=== PATIENT | male | born 1935 | race Caucasian/White ===

== ENCOUNTER 2018-06-05 09:39 | Inpatient (IN) | payer MEDICARE, OTHER ==
[~2018-06-05] VITALS: Ht 660.3 cm; Wt 95.5 kg
[2018-06-05 10:09] LABS: INR 1.1 INR; PARTIAL THROMBOPLASTIN TIME 28 SECONDS (22-32); PROTHROMBIN TIME 10.9 SECONDS (9.0-12.0)
[2018-06-05 10:21] LABS: ALANINE AMINOTRANSFERASE 27 U/L (12-78); ALBUMIN 3.7 G/DL (3.4-5.0); ALBUMIN/GLOBULIN RATIO 1.1 (1.1-1.5); ALKALINE PHOSPHATASE 123 IU/L (46-116); ANION GAP 13 (8-16); ASPARTATE AMINO TRANSFERASE 23 U/L (10-37); BILIRUBIN,TOTAL 0.4 MG/DL (0.1-1.0); BLOOD UREA NITROGEN 26 MG/DL (7-18); BUN/CREATININE RATIO 21.5 (5.4-32.0); CALCIUM 8.3 MG/DL (8.5-10.1); CHLORIDE 106 MMOL/L (99-107); CREATININE 1.21 MG/DL (0.60-1.10); GLUCOSE 96 MG/DL (70-104); POTASSIUM 4.4 MMOL/L (3.5-5.1); SODIUM 142 MMOL/L (135-145); TOTAL CARBON DIOXIDE 23.2 MMOL/L (24-32); TOTAL PROTEIN 7.1 G/DL (6.4-8.2); TROPONIN I < 0.04 NG/ML (0.0-0.05); eGFR 57 ML/MIN
[2018-06-05 10:35] LABS: WHITE BLOOD COUNT 9.2 X10'3 (4.5-11.0)
[2018-06-05 10:36] LABS: BASOPHILS # (AUTO) 0.2 X10'3 (0-0.2); EOSINOPHILS # (AUTO) 0.4 X10'3 (0-0.9); HEMATOCRIT 48.2 % (42.0-52.0); HEMOGLOBIN 16.3 g/dl (14.0-17.9); LYMPHOCYTES # (AUTO) 2.2 X10'3 (1.1-4.8); LYMPHOCYTES % (AUTO) 23.9 % (21-51); MEAN CORPUSCULAR HEMOGLOBIN 30.5 PG (27.0-31.0); MEAN CORPUSCULAR HGB CONC 33.9 % (33.0-36.5); MEAN CORPUSCULAR VOLUME 90.1 FL (78-98); MEAN PLATELET VOLUME 8.1 FL (7.4-10.4); MONOCYTES # (AUTO) 0.8 X10'3 (0-0.9); MONOCYTES % (AUTO) 8.2 % (2-12); NEUTROPHILS # (AUTO) 5.6 X10'3 (1.8-7.7); NEUTROPHILS % (AUTO) 61.9 % (42-75); PLATELET COUNT 211 X10'3 (140-440); RED BLOOD COUNT 5.35 X10'6 (4.70-6.10); RED CELL DISTRIBUTION WIDTH 13.4 % (11.5-14.5)
[2018-06-05] MEDS ORDERED: iohexol 350MG/ML 100ml bottle IV ONE (11:40)
[2018-06-05] MEDS ORDERED: magnesium 2GM in 50ml NS 50 ML IV PRN (11:45)
[2018-06-05] MEDS ORDERED: mag hydrox/Alum hydrox/simeth 30ml oral suspension PO PRN (11:45)
[2018-06-05] MEDS ORDERED: magnesium hydroxide 30ml (MOM) UD suspension PO PRN (11:45)
[2018-06-05] MEDS ORDERED: bisacodyl 10mg suppository rectal RC PRN (11:45)
[2018-06-05] MEDS ORDERED: magnesium 4gm in 100ml NS 100 ML IV PRN (11:45)
[2018-06-05] MEDS ORDERED: magnesium Cl slow-release 64mg tablet PO PRN (11:45)
[2018-06-05] MEDS ORDERED: ondansetron/PF 4mg/2ml inj IV PRN (11:45)
[2018-06-05] MEDS ORDERED: acetaminophen 325mg tablet PO PRN (11:45)
[2018-06-05] MEDS ORDERED: potassium Cl 40MEQ/NS 500ml 500 ML IV PRN ×2 (11:45)
[2018-06-05] MEDS ORDERED: potassium Cl 20 mEq SR tablet PO PRN ×2 (11:45)
[2018-06-05] MEDS: aspirin 325mg tablet, delayed-release (Ecotrin) PO SCH (11:50)
[2018-06-05] MEDS ORDERED: aspirin 325mg tablet, delayed-release (Ecotrin) PO ONE (13:30)
[2018-06-05] MEDS: sodium chloride 0.45% 1,000 ML IV SCH (13:35)
[2018-06-05] MEDS: clopidogrel 75mg tablet PO SCH (16:29)
[2018-06-05] MEDS ORDERED: AMIO200T10 PO (17:24)
[2018-06-05] MEDS ORDERED: LEVO50TA8 PO (17:24)
[2018-06-05] MEDS ORDERED: OMEP40CA37 PO (17:24)
[2018-06-05] MEDS ORDERED: METO25TA6 PO (17:24)
[2018-06-05 18:00] VITALS: BP 176/76
[2018-06-05 19:01] LABS: CHOL/HDL RATIO 3.2 (0.00-4.99); CHOLESTEROL 149 MG/DL (0-200); HDL CHOLESTEROL 46 MG/DL (35-60); LDL CHOLESTEROL 93 MG/DL (50-100); TRIGLYCERIDES 140 MG/DL (20-135)
[2018-06-05] MEDS: atorvastatin 20mg tablet PO SCH (19:44)
[2018-06-05] MEDS: heparin, porcine 5000 units/ml vial SQ SCH (19:47)
[2018-06-05] MEDS ORDERED: atorvastatin 10mg tablet PO SCH (20:00)
[2018-06-05 22:00] VITALS: BP 158/77
[2018-06-06 02:00] VITALS: BP 166/76
[2018-06-06] MEDS: sodium chloride 0.45% 1,000 ML IV SCH ×2 (05:11→17:06)
[2018-06-06 06:00] VITALS: BP 156/70
[2018-06-06 06:47] LABS: ALANINE AMINOTRANSFERASE 21 U/L (12-78); ALBUMIN 3.2 G/DL (3.4-5.0); ALBUMIN/GLOBULIN RATIO 1.1 (1.1-1.5); ALKALINE PHOSPHATASE 94 IU/L (46-116); ANION GAP 10 (8-16); ASPARTATE AMINO TRANSFERASE 17 U/L (10-37); BILIRUBIN,TOTAL 0.6 MG/DL (0.1-1.0); BLOOD UREA NITROGEN 19 MG/DL (7-18); BUN/CREATININE RATIO 16.4 (5.4-32.0); CALCIUM 8.2 MG/DL (8.5-10.1); CHLORIDE 108 MMOL/L (99-107); CHOL/HDL RATIO 3.1 (0.00-4.99); CHOLESTEROL 131 MG/DL (0-200); CREATININE 1.16 MG/DL (0.60-1.10); GLUCOSE 88 MG/DL (70-104); HDL CHOLESTEROL 42 MG/DL (35-60); LDL CHOLESTEROL 82 MG/DL (50-100); MAGNESIUM 2.1 MG/DL (1.5-2.4); SODIUM 142 MMOL/L (135-145); TOTAL CARBON DIOXIDE 24.1 MMOL/L (24-32); TOTAL PROTEIN 6.2 G/DL (6.4-8.2); TRIGLYCERIDES 75 MG/DL (20-135); eGFR 60 ML/MIN
[2018-06-06] MEDS: K and/or MAG REPLACEMENT MC SCH (08:00)
[2018-06-06] MEDS: aspirin 325mg tablet, delayed-release (Ecotrin) PO SCH (08:05)
[2018-06-06] MEDS: clopidogrel 75mg tablet PO SCH (08:05)
[2018-06-06] MEDS: atorvastatin 20mg tablet PO SCH (08:05)
[2018-06-06] MEDS: heparin, porcine 5000 units/ml vial SQ SCH (08:07)
[2018-06-06 10:00] VITALS: BP 158/64
[2018-06-06 14:00] VITALS: BP 160/75
[2018-06-06] MEDS: amLODIPine 5mg tablet PO SCH (17:06)
[2018-06-06] MEDS: LORazepam 0.5 MG tablet PO PRN ×2 (17:48→22:03)
[2018-06-06 18:00] VITALS: BP 147/56
[2018-06-06 22:00] VITALS: BP 163/88
[2018-06-07 02:00] VITALS: BP 107/56
[2018-06-07 06:00] VITALS: BP 145/77
[2018-06-07 06:04] LABS: ALANINE AMINOTRANSFERASE 22 U/L (12-78); ALBUMIN 3.4 G/DL (3.4-5.0); ALBUMIN/GLOBULIN RATIO 1.1 (1.1-1.5); ALKALINE PHOSPHATASE 101 IU/L (46-116); ANION GAP 8 (8-16); ASPARTATE AMINO TRANSFERASE 23 U/L (10-37); BILIRUBIN,TOTAL 0.6 MG/DL (0.1-1.0); BLOOD UREA NITROGEN 16 MG/DL (7-18); BUN/CREATININE RATIO 14.3 (5.4-32.0); CALCIUM 8.6 MG/DL (8.5-10.1); CHLORIDE 107 MMOL/L (99-107); CREATININE 1.12 MG/DL (0.60-1.10); GLUCOSE 82 MG/DL (70-104); POTASSIUM 3.5 MMOL/L (3.5-5.1); SODIUM 142 MMOL/L (135-145); TOTAL CARBON DIOXIDE 26.6 MMOL/L (24-32); TOTAL PROTEIN 6.6 G/DL (6.4-8.2); eGFR 63 ML/MIN
[2018-06-07] MEDS: sodium chloride 0.45% 1,000 ML IV SCH (06:35)
[2018-06-07] MEDS: K and/or MAG REPLACEMENT MC SCH (08:00)
[2018-06-07] MEDS ORDERED: aspirin 81mg tablet.DR PO SCH (08:00)
[2018-06-07] MEDS ORDERED: pantoprazole 40mg Tablet.DR PO SCH (08:00)
[2018-06-07] MEDS ORDERED: levoTHYROXINE 25mcg tablet PO SCH (08:00)
[2018-06-07] MEDS: clopidogrel 75mg tablet PO SCH (08:39)
[2018-06-07] MEDS: atorvastatin 20mg tablet PO SCH (08:40)
[2018-06-07] MEDS: amLODIPine 5mg tablet PO SCH (08:42)
[2018-06-07 10:00] VITALS: BP 158/70
[2018-06-07] MEDS ORDERED: ASPI-1071 PO (11:41)
[2018-06-07] MEDS ORDERED: NOR5T PO (11:41)
[2018-06-07] MEDS ORDERED: DABI75CA3 PO (11:41)
[2018-06-07] MEDS ORDERED: CLOP75TA35 PO (11:41)
[2018-06-07] MEDS ORDERED: ATOR20TA66 PO (11:41)
== END 2018-06-07 14:50 | disposition home or self-care (01) | DRG 66 ==
LOC: EDBD 09:40 → ER 09:40 → ED HOLD 11:41 → ORTHO 4S 15:37
PROVIDERS: ADMIT Internal Medicine; ATTEND Internal Medicine
PROC: B3251ZZ Computerized Tomography (CT Scan) of Bilateral Common Carotid Arteries using Low Osmolar Contrast (ICD-10-PCS; principal; 2018-06-05)
PROC: B32G1ZZ Computerized Tomography (CT Scan) of Bilateral Vertebral Arteries using Low Osmolar Contrast (ICD-10-PCS; 2018-06-05)
PROC: B3201ZZ Computerized Tomography (CT Scan) of Thoracic Aorta using Low Osmolar Contrast (ICD-10-PCS; 2018-06-05)
PROC: B32S1ZZ Computerized Tomography (CT Scan) of Right Pulmonary Artery using Low Osmolar Contrast (ICD-10-PCS; 2018-06-05)
PROC: B32T1ZZ Computerized Tomography (CT Scan) of Left Pulmonary Artery using Low Osmolar Contrast (ICD-10-PCS; 2018-06-05)
DX: I63.22 Cerebral infarction due to unspecified occlusion or stenosis of basilar artery (principal); E03.9 Hypothyroidism, unspecified; E86.0 Dehydration; I10 Essential (primary) hypertension; G62.9 Polyneuropathy, unspecified; R00.1 Bradycardia, unspecified; I48.0 Paroxysmal atrial fibrillation; N40.0 Benign prostatic hyperplasia without lower urinary tract symptoms; Z79.02 Long term (current) use of antithrombotics/antiplatelets; Z79.82 Long term (current) use of aspirin; Z79.899 Other long term (current) drug therapy; Z79.01 Long term (current) use of anticoagulants
CPT/HCPCS: 36415; 70450; 70498; 70544; 70551; 71045; 71275; 80053; 80061; 82948; 83735; 84443; 84484; 85025; 85610; 85651; 85730; 87070; 92616; 93005; 93306; 97116; 97162; 97530; 99285; A6449; J1644; J7030; Q9967